=== PATIENT | female | born 1960 | race Caucasian/White ===

== ENCOUNTER 2020-07-09 08:58 | Emergency (ER) | payer MEDICAID ==
[~2020-07-09] VITALS: Ht 160 cm; Wt 66.7 kg
[2020-07-09 09:16] VITALS: Ht 160 cm; Wt 66.7 kg
[2020-07-09 10:36] VITALS: BP 130/72
== END 2020-07-09 12:15 | disposition home or self-care (01) ==
LOC: ED 08:58
DX: M25.562 Pain in left knee (principal); M54.5 Low back pain; M54.2 Cervicalgia
CPT/HCPCS: J1885